=== PATIENT | male | born 1945 | race Caucasian/White ===

== ENCOUNTER 2020-05-04 11:15 | Inpatient (IN) | payer MEDICARE, OTHER ==
[~2020-05-04] VITALS: Ht 185.4 cm; Wt 107.6 kg
--- NOTE | 2020-05-04 11:48 | RAD ---
Examination: CHEST AP ONLY History: Reason: SOA / Spl. Instructions: / History: Comparison: None. Findings: AP portable upright frontal view of the chest was obtained. Limited pulmonary inflation noted. Elevation right hemidiaphragm is present. The cardiomediastinal silhouette is borderline. There is nonspecific mild diffuse thickening of the lung singh . There is no pneumothorax. No pleural effusion is appreciated. No acute bone abnormality. IMPRESSION: Mild interstitial thickening of the lung singh. This is of indeterminate chronicity. No focal consolidation. Electronically signed by: Mendez Agustin MD (05/04/2020 11:46 AM) [id number]
--- NOTE | 2020-05-04 11:56 | EKG ---
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
[2020-05-04 12:08] LABS: BASO % 0 % (0-3); EOS % 1 % (0-3); HEMATOCRIT 43.5 % (39.0-53.0); HEMOGLOBIN 14.4 g/dL (13.0-17.5); LYMPH # 1.2 x10^3/uL (1.0-4.8); LYMPH % 12 % (24-48); MEAN CORPUSCULAR HEMOGLOBIN 31 pg (25-35); MEAN CORPUSCULAR HGB CONC 33 g/dL (31-37); MEAN CORPUSCULAR VOLUME 93 fL (79-100); MONO % 9 % (0-9); NEUT # 8.3 x10^3uL (1.8-7.7); NEUT % 79 % (31-73); PLATELET COUNT 130 x10^3/uL (140-400); RED BLOOD COUNT 4.69 x10^6/uL (4.30-5.70); RED CELL DISTRIBUTION WIDTH 14.3 % (11.5-14.5); WHITE BLOOD COUNT 10.5 x10^3/uL (4.0-11.0)
[2020-05-04 12:17] LABS: CREATININE 1.2 mg/dL (0.7-1.3); GFR 59.5; POTASSIUM 4.1 mmol/L (3.5-5.1)
[2020-05-04 12:29] LABS: ALBUMIN 3.2 g/dL (3.4-5.0); ALBUMIN/GLOBULIN RATIO 0.7 (1.0-1.7); MAGNESIUM 1.8 mg/dL (1.8-2.4); TOTAL BILIRUBIN 0.8 mg/dL (0.2-1.0); TOTAL PROTEIN 7.6 g/dL (6.4-8.2)
[2020-05-04] MEDS ORDERED: IV NORMAL SALINE 1,000ML 1,000 ML IV ONE (13:15)
[2020-05-04] MEDS ORDERED: methylPREDNISolone SOD SUCC PF 125 MG/2 ML VIAL. IV ONE (13:15)
--- NOTE | 2020-05-04 13:53 | PHYS DOC ---
Past History Past Medical History: COPD, Diabetes, High Cholesterol, Hypertension Past Surgical History: Cholecystectomy, Other Additional Past Surgical Histo: MULTIPLE KIDNEY STONES; LEFT KNEE REPLACED Alcohol Use: None General Adult EDM: Chief Complaint: SHORTNESS OF BREATH HPI: HPI: Patient is a 74-year-old male who presented to ER today for evaluation of general weakness, diarrhea, cough, congestion, trouble breathing since Thursday. Patient did travel up here from [place] to [facility] for some exercise. He went to the urgent care today for this symptom, he was tested positive COVID-19 today, they sent him here for evaluation because his oxygen saturation level. Patient is not on oxygen at home, he is not a smoker. Patient has no history of heart problem. Patient denies any chest pain. Patient denies any fever today. Review of Systems: Review of Systems: Constitutional: Denies fever or chills Eyes: Denies change in visual acuity HENT: Denies nasal congestion or sore throat Respiratory: Positive for cough or shortness of breath Cardiovascular: Denies chest pain or edema GI: Denies abdominal pain, positive for nausea and diarrhea : Denies dysuria Musculoskeletal: Denies back pain or joint pain Integument: Denies rash Neurologic: Denies headache, focal weakness or sensory changes Endocrine: Denies polyuria or polydipsia Lymphatic: Denies swollen glands Psychiatric: Denies depression or anxiety Heart Score: Risk Factors: Risk Factors: DM, Current or recent (<one month) smoker, HTN, HLP, family history of CAD, obesity. Risk Scores: Score 0 - 3: 2.5% MACE over next 6 weeks - Discharge Home Score 4 - 6: 20.3% MACE over next 6 weeks - Admit for Clinical Observation Score 7 - 10: 72.7% MACE over next 6 weeks - Early Invasive Strategies Current Medications: Current Meds: Current Medications Medications (Trade) Dose Ordered Sig/Cordelia Start Time Stop Time Status Last Admin Dose Admin Ceftriaxone Sodium 1 gm/ Sodium Chloride 50 ml @ 100 mls/hr 1X ONCE 05/04/20 13:15 05/04/20 13:44 DC Methylprednisolone Sodium Succinate (SOLU-Medrol 125MG VIAL) 125 mg 1X ONCE 05/04/20 13:15 05/04/20 13:16 DC Sodium Chloride 1,000 ml @ 1,000 mls/hr 1X ONCE 05/04/20 13:15 05/04/20 14:14 Allergies: Allergies: Allergies Coded Allergies Type Severity Reaction Last Updated Verified No Known Drug Allergies 05/04/20 No Physical Exam: PE: Constitutional: Well developed, well nourished, no acute distress, non-toxic appearance. [] HENT: Normocephalic, atraumatic, bilateral external ears normal, oropharynx moist, no oral exudates, nose normal. [] Eyes: PERRLA, EOMI, conjunctiva normal, no discharge. [] Neck: Normal range of motion, no tenderness, supple, no stridor. [] Cardiovascular:Heart rate regular rhythm, no murmur [] Lungs & Thorax: Bilateral breath sounds with crackles at lung bases to auscultation [] Abdomen: Bowel sounds normal, soft, no tenderness, no masses, no pulsatile masses. [] Skin: Warm, dry, no erythema, no rash. [] Back: No tenderness, no CVA tenderness. [] Extremities: No tenderness, no cyanosis, no clubbing, ROM intact, no edema. [] Neurologic: Alert and oriented X 3, normal motor function, normal sensory function, no focal deficits noted. [] Psychologic: Affect normal, judgement normal, mood normal. [] Current Patient Data: Labs: Laboratory Tests Test 05/04/20 11:45 White Blood Count 10.5 x10^3/uL (4.0-11.0) Red Blood Count 4.69 x10^6/uL (4.30-5.70) Hemoglobin 14.4 g/dL (13.0-17.5) Hematocrit 43.5 % (39.0-53.0) Mean Corpuscular Volume 93 fL (79-100) Mean Corpuscular Hemoglobin 31 pg (25-35) Mean Corpuscular Hemoglobin Concent 33 g/dL (31-37) Red Cell Distribution Width 14.3 % (11.5-14.5) Platelet Count 130 x10^3/uL (140-400) L Neutrophils (%) (Auto) 79 % (31-73) H Lymphocytes (%) (Auto) 12 % (24-48) L Monocytes (%) (Auto) 9 % (0-9) Eosinophils (%) (Auto) 1 % (0-3) Basophils (%) (Auto) 0 % (0-3) Neutrophils # (Auto) 8.3 x10^3uL (1.8-7.7) H Lymphocytes # (Auto) 1.2 x10^3/uL (1.0-4.8) Monocytes # (Auto) 1.0 x10^3/uL (0.0-1.1) Eosinophils # (Auto) 0.0 x10^3/uL (0.0-0.7) Basophils # (Auto) 0.0 x10^3/uL (0.0-0.2) Sodium Level 128 mmol/L (136-145) L Potassium Level 4.1 mmol/L (3.5-5.1) Chloride Level 93 mmol/L (98-107) L Carbon Dioxide Level 25 mmol/L (21-32) Anion Gap 10 (6-14) Blood Urea Nitrogen 16 mg/dL (8-26) Creatinine 1.2 mg/dL (0.7-1.3) Estimated GFR (Cockcroft-Gault) 59.5 BUN/Creatinine Ratio 13 (6-20) Glucose Level 385 mg/dL (70-99) H Calcium Level 9.0 mg/dL (8.5-10.1) Magnesium Level 1.8 mg/dL (1.8-2.4) Total Bilirubin 0.8 mg/dL (0.2-1.0) Aspartate Amino Transferase (AST) 36 U/L (15-37) Alanine Aminotransferase (ALT) 44 U/L (16-63) Alkaline Phosphatase 101 U/L (46-116) Troponin I Quantitative < 0.017 ng/mL (0-0.055) NO-Als-J-Type Natriuretic Peptide 60 pg/mL (0-124) Total Protein 7.6 g/dL (6.4-8.2) Albumin 3.2 g/dL (3.4-5.0) L Albumin/Globulin Ratio 0.7 (1.0-1.7) L Vital Signs: Vital Signs Date Time Temp Pulse Resp B/P (MAP) Pulse Ox O2 Delivery O2 Flow Rate FiO2 05/04/20 11:31 98.1 75 19 138/89 (105) 87 Room Air EKG: EKG: EKG was done at 1150, sinus rhythm, heart rate of 75 bpm, no ST segment elevation. Radiology/Procedures: Radiology/Procedures: [][address] [id number] IMAGING REPORT Signed PATIENT: DILIP SCHMIDT ACCOUNT: [id number] : 1945 LOCATION: ER AGE: 74 SEX: M EXAM STATUS: REG ER ORD. PHYSICIAN: LEENA HURTADO DO REASON: SOA PROCEDURE: CHEST AP ONLY Examination: CHEST AP ONLY History: Reason: SOA / Spl. Instructions: / History: Comparison: None. Findings: AP portable upright frontal view of the chest was obtained. Limited pulmonary inflation noted. Elevation right hemidiaphragm is present. The cardiomediastinal silhouette is borderline. There is nonspecific mild diffuse thickening of the lung singh . There is no pneumothorax. No pleural effusion is appreciated. No acute bone abnormality. IMPRESSION: Mild interstitial thickening of the lung singh. This is of indeterminate chronicity. No focal consolidation. Electronically signed by: Mendez Covarrubias MD (05/04/2020 11:46 AM) [id number] DICTATED AND SIGNED BY: MENDEZ COVARRUBIAS MD DATE: 05/04/20 1146 CC: PCPMARTÍNEZ; LEENA HURTDAO DO ~ Course & Med Decision Making: Course & Med Decision Making Pertinent Labs and Imaging studies reviewed. (See chart for details) Patient is a 74-year-old male who was diagnosed with COVID-19 infection today, he will need to be admitted to hospital due to her oxygen saturation low. Discussed with Dr. JAIN , who agreed to admit the patient . Cricket Disclaimer: Dragtamie Disclaimer: This electronic medical record was generated, in whole or in part, using a voice recognition dictation system. Departure Departure: Impression: Primary Impression: Pneumonia due to COVID-19 virus Additional Impression: Hypoxia Disposition: ADMITTED INPATIENT Admitting Physician: Gopal Jain Condition: STABLE Referrals: PCPMARTÍNEZ (PCP) LEENA HURTADO DO May 04, 2020 13:53
[2020-05-04] MEDS ORDERED: IV NORMAL SALINE 50ML 50 ML ONE (13:54)
[2020-05-04] MEDS ORDERED: cefTRIAXone SODIUM 1 GM VIAL ONE (13:55)
[2020-05-04] MEDS ORDERED: ONDANSETRON PF 4 MG/2 ML VIAL. IVP PRN (14:00)
[2020-05-04] MEDS: IV NORMAL SALINE 1,000ML 1,000 ML IV SCH (15:50)
[2020-05-04 16:40] VITALS: BP 125/58
--- NOTE | 2020-05-04 19:18 | HP ---
ADMIT DATE: 05/04/2020 ATTENDING PHYSICIAN: Dr. Jain. CHIEF COMPLAINT: Weakness and cough. HISTORY OF PRESENT ILLNESS: The patient is an otherwise healthy 74-year-old gentleman. He is still working. 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 He originally comes from [facility]. He has been living in a hotel for the last week. He had trouble breathing since the past Thursday for the last 5 days, cough, congestion, diarrhea and generalized weakness. He had desaturated and required 3-4 liters of oxygen to maintain 90% saturation. He had a swab today, which showed it was positive for COVID-19 today. He was sent here because of the decreased oxygen level. Chest x-ray was a poor film, poor inspiratory effort. A followup PA and lateral has been ordered. He is not a smoker. He is admitted then with COVID-19 pneumonia as well as associated symptoms. He does have sleep apnea. He wears the CPAP at night. He denied any chest pain. No recent fevers. He is otherwise pretty alert. PAST MEDICAL HISTORY: Significant for multiple kidney stones. He has had left knee replacement, cholecystectomy, hypertension, hyperlipidemia, diabetes and COPD. ALLERGIES: He has no known drug allergies. CURRENT MEDICINES: Reviewed. He was scheduled to take ondansetron. He was on saline solution. He has CPAP at night. He was also given some methylprednisolone in the ED. SOCIAL HISTORY: He is a nonsmoker, nondrinker. FAMILY HISTORY: His mom at age 80 of pulmonary complications of collapsed lung. Father of a heart attack at age 85. He is semi-retired. 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 REVIEW OF SYSTEMS: Significant for the 5 days of generalized weakness, dry nonproductive cough. No fevers per se. Some diarrhea. No vomiting. The rest of the detailed review of systems ____ to be negative. PHYSICAL EXAMINATION: GENERAL: When I saw him, this is a pleasant, healthy gentleman. INITIAL VITAL SIGNS: Showed a blood pressure of 119/64, pulse is 80 and regular, temperature 98.1 degrees Fahrenheit, oxygen saturation 94% on 3 liters of nasal cannula. HEENT: Head is without trauma. Pupils are reactive. Sclerae are nonicteric. Oropharynx is clear. NECK: Supple. No bruits identified. LUNGS: Coarse rhonchi at the bases, minimal wheezing identified. Fairly good air movement. CARDIOVASCULAR: Showed regular heart tones. No gallops. ABDOMEN: Soft, nontender. No organomegaly. Bowel sounds are normoactive. EXTREMITIES: Show no cyanosis or edema. NEUROLOGIC: Focally intact. SKIN: Warm and dry. Chest x-ray as noted. PERTINENT LABORATORY STUDIES: His hemoglobin was 14.4 g/dL with a white count of 10,500. Sodium was 128 mEq, creatinine 1.2 ____. Nonfasting blood sugar 385. Troponin is 0.17. ASSESSMENT: 1. A 74-year-old gentleman with COVID-19 coronavirus, respiratory infection. 2. Cough and congestion. 3. Type 2 diabetes. 4. Degenerative arthritis. 5. Hypertension. 6. Hyperlipidemia. PLAN: 1. Admit to the intensive care. 2. Supplemental oxygen. 3. I have ordered low dose of Decadron as recommended. 4. DVT prophylaxis with Lovenox. 5. Continue some home meds. 6. Followup chest x-ray in the morning. 7. P.r.n. Tussionex. SP JAIN MD DR: ABIMAEL/gadiel JOB#: [id number] / [id number]
[2020-05-04] MEDS: ENOXAPARIN 40 MG/0.4 ML SYRINGE. SQ SCH (20:04)
[2020-05-04] MEDS: DEXAMETHASONE SOD PHOS 10 MG/ML VIAL. IV SCH (20:04)
[2020-05-04 20:30] VITALS: BP 137/65
[2020-05-04 23:20] VITALS: BP 121/66
[2020-05-05 03:00] VITALS: BP 112/57
[2020-05-05] MEDS: IV NORMAL SALINE 1,000ML 1,000 ML IV SCH (06:30)
[2020-05-05 06:43] VITALS: BP 122/56
[2020-05-05] MEDS: metFORMIN XR 500 MG TAB.ER.24H PO SCH ×2 (08:29→18:04)
[2020-05-05] MEDS: DEXAMETHASONE SOD PHOS 10 MG/ML VIAL. IV SCH (08:29)
--- NOTE | 2020-05-05 11:29 | PN ---
DATE: 05/05/2020 ATTENDING PHYSICIAN: Dr. Jain. SUBJECTIVE: The patient is feeling well. He is not dyspneic. We are checking room air sat. He slept better. Cough is improved. OBJECTIVE FINDINGS: VITAL SIGNS: Blood pressure today is 122/56, pulse 65 and regular, temperature 97.8 degrees Fahrenheit and oxygen saturation are close to normal on room air. HEENT: Head is without trauma. Pupils are reactive. Sclerae nonicteric. Oropharynx clear. NECK: Supple. LUNGS: Good breath sounds. Very minimal rhonchi at the bases. CARDIOVASCULAR: Showed regular heart tones. No gallops. Peripheral pulses are palpable and full. ABDOMEN: Obese, protuberant. No organomegaly. Bowel sounds are hypoactive. EXTREMITIES: Showed no cyanosis or edema. NEUROLOGIC: Focally intact. Speech is fluent. SKIN: Warm and dry. 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 COVID-19 positive infection. 2. Questionable pneumonia. 3. Hypoxemia, improved. 4. Essential hypertension. PLAN: 1. We are weaning down his oxygen. We will check room air sat. 2. Continue Decadron daily. 3. Continue Lovenox daily. 4. I have added zinc and Pepcid, which seems to help with viral replication. 5. I will order a CT of the chest for tomorrow. He is doing well clinically. SP JAIN MD DR: ABIMAEL/gadiel JOB#: [id number] / [id number]
[2020-05-05 12:34] VITALS: BP 129/59
[2020-05-05] MEDS: ZINC SULFATE 220 MG CAPSULE. PO SCH (12:49)
[2020-05-05] MEDS: HYDROcodone/CHLORPHEN POLIS 5 ML SUS.ER.12H PO PRN (12:50)
[2020-05-05] MEDS: FAMOTIDINE 20 MG TABLET PO SCH ×2 (12:50→20:16)
[2020-05-05 16:14] VITALS: BP 123/69
[2020-05-05] MEDS ORDERED: INSULIN REGULAR 100 UNIT/ML 3ML VIAL. SQ ONE ×2 (17:45→22:15)
[2020-05-05 20:15] VITALS: BP 113/56
[2020-05-05] MEDS: ENOXAPARIN 40 MG/0.4 ML SYRINGE. SQ SCH (20:16)
[2020-05-05] MEDS ORDERED: INSULIN LISPRO 300 UNITS/3 ML VIAL. SQ ONE (22:00)
[2020-05-05 23:01] VITALS: BP 116/54
[2020-05-06 03:05] VITALS: BP 102/47
[2020-05-06] MEDS ORDERED: IOHEXOL 300 MG/ML 75 ML VIAL. IV ONE (06:45)
[2020-05-06] MEDS ORDERED: CONTRAST GIVEN. MC PRN (06:45)
[2020-05-06 07:00] VITALS: BP 114/47
[2020-05-06] MEDS ORDERED: INSULIN REGULAR 100 UNIT/ML 3ML VIAL. SQ ONE (07:45)
[2020-05-06] MEDS: ZINC SULFATE 220 MG CAPSULE. PO SCH (08:22)
[2020-05-06] MEDS: FAMOTIDINE 20 MG TABLET PO SCH ×2 (08:22→20:40)
[2020-05-06] MEDS: metFORMIN XR 500 MG TAB.ER.24H PO SCH (08:22)
--- NOTE | 2020-05-06 10:10 | RAD ---
EXAM: CT CHEST WITH CONTRAST HISTORY: Covid 19, pneumonia COMPARISON: Chest radiograph 05/04/2020 TECHNIQUE: Helical CT of the chest performed with intravenous contrast. Coronal and sagittal reformats were obtained. One or more of the following individualized dose reduction techniques were utilized for this examination: 1. Automated exposure control 2. Adjustment of the mA and/or kV according to patient size 3. Use of iterative reconstruction technique. FINDINGS: Thyroid gland and thoracic inlet: Thyroid gland is normal. No thoracic inlet lymphadenopathy. Heart and great vessels: Heart is at the upper limit of normal in size. There are is no pleural effusion. Mild coronary artery calcifications. The thoracic aorta is normal in caliber. Mild calcifications in the thoracic aorta. Mediastinum and rigoberto: There is a low right paratracheal lymph node measuring 1.4 cm short axis, left hilar lymph node measuring 1.6 cm short axis, and additional smaller mediastinal and hilar lymph nodes, likely reactive. Lungs and pleura: There are moderate peripheral and basilar predominant groundglass opacities and reticular changes. The airways are clear. There is no pleural effusion. Chest wall and axillae: No axillary lymphadenopathy. Upper abdomen: Bilateral nephrolithiasis. There is a subcentimeter hypodensity in the liver, too small to characterize but likely a cyst. Trace fluid in the upper abdomen. Bones: No acute osseous abnormality. IMPRESSION: 1. Moderate peripheral basilar predominant groundglass opacities consistent with atypical infection. 2. Bilateral nephrolithiasis. Electronically signed by: Paula Joseph MD (05/06/2020 10:07 AM) [id number]
[2020-05-06 11:00] VITALS: BP 133/59
--- NOTE | 2020-05-06 12:03 | PN ---
DATE: 05/06/2020 ATTENDING PHYSICIAN: Dr. Jain. SUBJECTIVE: The patient is doing well. He is on supplemental oxygen. He is not dyspneic. He is eating well. OBJECTIVE FINDINGS: VITAL SIGNS: His blood pressure today is 102/47, pulse 63 and regular. He is afebrile. Oxygen saturation maintaining adequate sats 90% with 4 liters down from 5 liters nasal cannula. HEENT: Head is without trauma. Pupils are reactive. Sclerae nonicteric. Oropharynx clear. NECK: Supple. LUNGS: Minimal rhonchi in the bases. CARDIOVASCULAR: Showed regular heart tones. No gallops. Peripheral pulses are palpable and full. ABDOMEN: Obese, protuberant. No organomegaly. Bowel sounds are hypoactive. EXTREMITIES: Showed no cyanosis. LABORATORY DATA: Blood sugars were high related to the steroids. This will be treated accordingly. IMAGING STUDIES: CT of the chest done earlier today showed the presence of moderate perihilar and peripheral basilar ground glass opacity consistent with atypical pneumonia. He also has bilateral nephrolithiasis. ASSESSMENT: 1. A 74-year-old gentleman with COVID-19 pneumonia. 2. Hypoxemia. 3. Type 2 diabetes. 4. Essential hypertension. 5. Sugars aggravated by Decadron use. PLAN: 1. We will restart the Decadron. 2. We will get him on insulin to manage his blood sugar. 3. Continue Lovenox prophylaxis along with zinc and Pepcid. 4. We will try to wean down his oxygen requirements. 5. His case and symptoms are mild at this time. I do not think we would consider Remdesivir unless he gets worse clinically. SP JAIN MD DR: ABIMAEL/gadiel JOB#: [id number] / [id number]
[2020-05-06] MEDS ORDERED: DEXTROSE 50% 25 GM / 50ML DISP.SYRIN. IV PRN (12:15)
[2020-05-06] MEDS: INSULIN GLARGINE SYRINGE. SQ SCH ×2 (13:01→21:08)
[2020-05-06] MEDS: INSULIN LISPRO 300 UNITS/3 ML VIAL. SQ SCH ×2 (13:02→17:30)
[2020-05-06 15:00] VITALS: BP 138/67
[2020-05-06] MEDS: HYDROcodone/CHLORPHEN POLIS 5 ML SUS.ER.12H PO PRN (16:31)
[2020-05-06] MEDS: IPRATROPIUM/ALBUTEROL 20/100mcg/INH INHALER. INH PRN (16:36)
[2020-05-06] MEDS ORDERED: FUROSEMIDE 40 MG/4 ML VIAL IVP ONE (17:00)
[2020-05-06] MEDS: ENOXAPARIN 40 MG/0.4 ML SYRINGE. SQ SCH (20:40)
[2020-05-06 20:45] VITALS: BP 129/64
[2020-05-06 23:13] VITALS: BP 129/61
[2020-05-07] MEDS: FAMOTIDINE 20 MG TABLET PO SCH ×2 (08:44→21:03)
[2020-05-07] MEDS: ZINC SULFATE 220 MG CAPSULE. PO SCH (08:44)
[2020-05-07] MEDS: DEXAMETHASONE SOD PHOS 10 MG/ML VIAL. IV SCH (08:44)
[2020-05-07] MEDS: INSULIN LISPRO 300 UNITS/3 ML VIAL. SQ SCH ×3 (08:45→17:00)
[2020-05-07 10:05] VITALS: BP 135/67
[2020-05-07] MEDS: INSULIN GLARGINE SYRINGE. SQ SCH ×2 (10:45→21:04)
[2020-05-07 11:09] VITALS: BP 135/67
[2020-05-07] MEDS ORDERED: INSULIN LISPRO 300 UNITS/3 ML VIAL. SQ ONE ×2 (12:15→17:45)
[2020-05-07] MEDS ORDERED: INSULIN REGULAR 100 UNIT/ML 3ML VIAL. IV ONE (12:30)
[2020-05-07 14:02] VITALS: BP 129/61
[2020-05-07] MEDS ORDERED: INSULIN REGULAR 100 UNIT/ML 3ML VIAL. SQ ONE (17:00)
--- NOTE | 2020-05-07 18:37 | PN ---
DATE: 05/07/2020 ATTENDING PHYSICIAN: Dr. Jain. SUBJECTIVE: The patient is doing well. He is inquiring about going home. I explained to him that he is still not out of the herring yet. He is still requiring supplemental oxygen. He is getting some cabin fever. OBJECTIVE FINDINGS: GENERAL: Cough is less prominent. Sugars are down to 290. He has not been compliant with his metformin. VITAL SIGNS: Blood pressure today is 129/61; pulse 62 and regular; afebrile, 98 degrees Fahrenheit; oxygen saturation 93% on 5 liters by nasal cannula. HEENT: Head is without trauma. Pupils are reactive. Sclerae nonicteric. Oropharynx clear. NECK: Supple. No bruits. HEENT: Head is without trauma. Pupils are reactive. Sclerae nonicteric. Oropharynx clear. LUNGS: Minimal rhonchi at the bases. He has good air movement. CARDIOVASCULAR: Showed regular heart tones. No gallops. ABDOMEN: Soft, no guarding. EXTREMITIES: Without cyanosis or edema. NEUROLOGIC: Focally intact. Speech is fluent. No focal deficit. SKIN: Warm and dry. ASSESSMENT: 1. A 74-year-old gentleman with COVID-[address] scan with bilateral and bibasilar infiltrates. 2. Hypoxemia requiring supplemental oxygen. 3. Type 2 diabetes with poor control in the past. 4. Essential hypertension. 5. Sugars have been aggravated by Decadron use. PLAN: 1. We will adjust his insulin regimen accordingly as his sugars have been high with the Decadron. 2. Continue Lovenox prophylaxis. 3. Continue zinc and Pepcid. 4. We are trying to wean down his oxygen requirements. 5. I think his symptoms are stable. He is not anywhere close to requiring remdesivir at this time. I think that he will turn the corner, will see how he does in the next 48 hours. SP JAIN MD DR: ABIMAEL/gadiel JOB#: [id number] / [id number]
[2020-05-07 19:43] VITALS: BP 159/71
[2020-05-07] MEDS ORDERED: INSULIN LISPRO 300 UNITS/3 ML VIAL. SQ SCH (21:00)
[2020-05-07] MEDS: ENOXAPARIN 40 MG/0.4 ML SYRINGE. SQ SCH (21:03)
[2020-05-07] MEDS: IPRATROPIUM/ALBUTEROL 20/100mcg/INH INHALER. INH PRN (21:03)
[2020-05-07 23:00] VITALS: BP 133/68
[2020-05-08 07:33] VITALS: BP 135/62
[2020-05-08] MEDS: INSULIN LISPRO 300 UNITS/3 ML VIAL. SQ SCH ×4 (08:00→21:05)
[2020-05-08] MEDS: metFORMIN XR 500 MG TAB.ER.24H PO SCH ×2 (08:07→16:38)
[2020-05-08] MEDS: DEXAMETHASONE SOD PHOS 10 MG/ML VIAL. IV SCH (08:07)
[2020-05-08] MEDS: FAMOTIDINE 20 MG TABLET PO SCH ×2 (08:08→21:03)
[2020-05-08] MEDS: ZINC SULFATE 220 MG CAPSULE. PO SCH (08:08)
[2020-05-08 10:58] VITALS: BP 136/64
--- NOTE | 2020-05-08 12:17 | PN ---
DATE: 05/08/2020 ATTENDING PHYSICIAN: Dr. Jain. SUBJECTIVE: The patient is doing well. He has no new complaints. He remains on supplemental oxygen. He denies any pain or dyspnea. OBJECTIVE FINDINGS: VITAL SIGNS: Blood pressure today is 136/64 mmHg, pulse is 70 and regular, temperature 97.3 degrees Fahrenheit, oxygen saturation 92% on 6 liters by nasal cannula. HEENT: Head is without trauma. Pupils are reactive. Sclerae are nonicteric. Oropharynx clear. NECK: Supple. No stridor. LUNGS: Bibasilar rhonchi persist. CARDIOVASCULAR: Showed regular heart tones. No gallops. Peripheral pulses are palpable and full. ABDOMEN: Obese, protuberant. No organomegaly. Bowel sounds were hypoactive. EXTREMITIES: Showed no cyanosis or edema. NEUROLOGIC: Focally intact. SKIN: Warm and dry. Nonfasting blood sugar came down to 148 this morning. ASSESSMENT: 1. A 74-year-old gentleman from [place]. He has COVID-19 coronavirus pneumonia. 2. Hypoxemia, requiring supplemental oxygen. 3. Type 2 diabetes with poor control. Sugars are better in the hospital. 4. History of sleep apnea. 5. Essential hypertension. PLAN: 1. Continue weaning down his supplemental oxygen. 2. He has not been anywhere close to requiring remdesivir. 3. Continue Lovenox for prophylaxis. 4. Continue Decadron, zinc and Pepcid. 5. Glucose control. 6. Once he stabilizes and is at baseline, he can be discharged back to his hotel suite to continue his quarantine. Eventually, he plans on returning to [place] 05/17/2020. SP JAIN MD DR: ABIMAEL/gadiel JOB#: [id number] / [id number]
[2020-05-08 15:09] VITALS: BP 135/64
[2020-05-08 19:41] VITALS: BP 173/78
[2020-05-08] MEDS ORDERED: INSULIN LISPRO 300 UNITS/3 ML VIAL. SQ SCH (21:00)
[2020-05-08] MEDS: ENOXAPARIN 40 MG/0.4 ML SYRINGE. SQ SCH (21:02)
[2020-05-08] MEDS: HYDROcodone/CHLORPHEN POLIS 5 ML SUS.ER.12H PO PRN (21:03)
[2020-05-08] MEDS: INSULIN GLARGINE SYRINGE. SQ SCH (21:04)
[2020-05-09 02:03] VITALS: BP 161/76
[2020-05-09] MEDS ORDERED: METF10007 PO (03:11)
[2020-05-09] MEDS ORDERED: BUPR300T92 PO (03:11)
[2020-05-09] MEDS ORDERED: SIMV40TA18 PO (03:11)
[2020-05-09] MEDS ORDERED: TRIA1CAP3 PO (03:11)
[2020-05-09] MEDS ORDERED: LITH450T16 PO (03:11)
[2020-05-09] MEDS ORDERED: AMLO-187 PO (03:11)
[2020-05-09] MEDS ORDERED: ESCITALOPRAM OX20 MG PO (03:11)
[2020-05-09] MEDS ORDERED: GABA600T7 PO (03:11)
[2020-05-09 05:47] VITALS: BP 154/69
[2020-05-09] MEDS: ZINC SULFATE 220 MG CAPSULE. PO SCH (10:09)
[2020-05-09] MEDS: FAMOTIDINE 20 MG TABLET PO SCH ×2 (10:09→21:32)
[2020-05-09] MEDS: metFORMIN XR 500 MG TAB.ER.24H PO SCH ×2 (10:09→17:23)
[2020-05-09] MEDS: DEXAMETHASONE SOD PHOS 10 MG/ML VIAL. IV SCH (10:09)
[2020-05-09] MEDS: INSULIN LISPRO 300 UNITS/3 ML VIAL. SQ SCH ×2 (12:15→17:54)
[2020-05-09 15:00] VITALS: BP 130/66
[2020-05-09 18:17] VITALS: BP 138/68
--- NOTE | 2020-05-09 18:37 | RAD ---
EXAM: CHEST PA LATERAL 05/09/2020 12:00 AM CLINICAL INDICATION:Worsening shortness of breath. Covid positive COMPARISON:Chest radiograph and CT chest 05/06/2020 TECHNIQUE:PA view of the chest FINDINGS:The cardiomediastinal silhouette is unchanged. Lungs are hypoexpanded. Bilateral peripheral basilar predominant opacities are slightly increased, particularly in the left lung base. No pleural effusion or pneumothorax. No acute osseous abnormality. IMPRESSION:Slightly worsened bilateral pulmonary opacities. Electronically signed by: Paula Joseph MD (05/09/2020 6:34 PM) [id number]
[2020-05-09] MEDS ORDERED: SIMVASTATIN 40 MG TABLET. PO SCH (21:00)
[2020-05-09] MEDS: GABAPENTIN 300 MG CAPSULE. PO SCH (21:32)
[2020-05-09] MEDS: LITHIUM CARBONATE ER 450 MG TABLET.ER PO SCH (21:32)
[2020-05-09] MEDS: ENOXAPARIN 40 MG/0.4 ML SYRINGE. SQ SCH (21:34)
[2020-05-09] MEDS: INSULIN GLARGINE SYRINGE. SQ SCH (21:34)
[2020-05-09 22:31] VITALS: BP 166/75
--- NOTE | 2020-05-10 01:37 | PN ---
DATE: 05/09/2020 SUBJECTIVE: The patient is a 74-year-old male patient who was admitted originally on 05/04 basically with shortness of breath for 5 days prior to admission, cough, congestion, diarrhea and generalized weakness. He had desaturation and required 3-4 liters of oxygen to maintain his oxygen saturation around 90%. He had swabs which showed that he was positive for COVID-19. He was admitted through the Emergency Room for decreased oxygen level. His chest x-ray was a poor film, poor inspiratory effort. A followup PA and lateral view has been ordered and he was admitted for COVID-19 pneumonia as well as associated symptoms. He does have sleep apnea. He wears CPAP at nighttime. He denied any chest pain. When I saw him today, he was sitting in the chair, in no apparent respiratory distress. On questioning, he continued to have cough with mostly grayish colored sputum. He has also recurrent bouts of cough, especially if he takes a deep breath, but denied any chest pain. Did complain of shortness of breath, but denied any orthopnea or paroxysmal nocturnal dyspnea. OBJECTIVE: GENERAL: On examining him, he looked well and was clearly in no apparent respiratory distress. No pallor, jaundice, cyanosis or thyromegaly. No jugular venous distention. No limb edema. VITAL SIGNS: His heart rate was 51, blood pressure was 154/69, temperature was 97.8, respiratory rate was 21 and oxygen saturation was 93% on 6 liters of oxygen. HEAD, EYES, EARS, NOSE AND THROAT: Showed normocephalic, atraumatic. NECK: Supple. HEART: Normal first and second heart sounds. No gallop, rub or murmur. CHEST: Showed central trachea, equal bilateral chest expansion, air entry, vesicular sounds with bilateral basal crepitation. I could not appreciate any rhonchi. ABDOMEN: Distended, soft, nontender. NEUROLOGIC: He was awake, alert and all his cranial nerves intact. He moves all extremities without difficulty. LABORATORY DATA: His most recent lab work showed his serum sodium was 128, potassium 4.1, chloride 93, bicarbonate 25, anion gap of 10, BUN 16, creatinine 1.2, estimated GFR was 59 mL per minute, his glucose was 385, calcium was 9, magnesium was 1.8. Total bilirubin, AST, ALT, alkaline phosphatase were normal. Total protein was 7.6, albumin was 3.2. His white cell count was 10,000, hemoglobin 14.4, hematocrit 44, MCV 93, and platelet count of 130,000. His coronavirus-2 PCR was not detected. PLAN: My plan is to repeat all his lab work, chest x-ray and swab him again and if he remains negative, we can hopefully discharge him home. ANSHU YOUNG MD DR: ELIER/gadiel JOB#: [id number] / [id number]
[2020-05-10 05:06] VITALS: BP 156/76
[2020-05-10 07:16] LABS: ALBUMIN 2.6 g/dL (3.4-5.0); ALBUMIN/GLOBULIN RATIO 0.7 (1.0-1.7); C REACTIVE PROTEIN 16.2 mg/L (0-3.3); CALCIUM 8.8 mg/dL (8.5-10.1); GFR 73.5; POTASSIUM 3.2 mmol/L (3.5-5.1); TOTAL BILIRUBIN 0.4 mg/dL (0.2-1.0); TOTAL PROTEIN 6.5 g/dL (6.4-8.2)
[2020-05-10] MEDS: INSULIN LISPRO 300 UNITS/3 ML VIAL. SQ SCH ×4 (08:00→18:37)
[2020-05-10] MEDS: GABAPENTIN 300 MG CAPSULE. PO SCH ×3 (08:16→22:26)
[2020-05-10] MEDS: FAMOTIDINE 20 MG TABLET PO SCH ×2 (08:16→22:26)
[2020-05-10] MEDS: CITALOPRAM 20 MG TABLET. PO SCH (08:16)
[2020-05-10] MEDS: TRIAMTERENE/HCTZ 37.5/25MG TABLET. PO SCH (08:16)
[2020-05-10] MEDS: ZINC SULFATE 220 MG CAPSULE. PO SCH (08:16)
[2020-05-10] MEDS: amLODIPine BESYLATE 10 MG TABLET PO SCH (08:16)
[2020-05-10] MEDS: buPROPion XL 300 MG TAB.ER.24H. PO SCH (08:17)
[2020-05-10] MEDS: DEXAMETHASONE 4 MG TABLET PO SCH (08:17)
[2020-05-10] MEDS: metFORMIN 500 MG TABLET PO SCH ×2 (08:17→16:23)
[2020-05-10 08:20] LABS: HEMATOCRIT 41.5 % (39.0-53.0); HEMOGLOBIN 13.6 g/dL (13.0-17.5); RED BLOOD COUNT 4.53 x10^6/uL (4.30-5.70); RED CELL DISTRIBUTION WIDTH 13.9 % (11.5-14.5); WHITE BLOOD COUNT 11.1 x10^3/uL (4.0-11.0)
[2020-05-10 11:30] VITALS: BP 138/56
[2020-05-10] MEDS ORDERED: VANCOMYCIN PER PHARMACY MC PRN (13:45)
[2020-05-10] MEDS ORDERED: REMDESIVIR LOAD in IV NORMAL SALINE 250ML TV IV ONE (14:00)
[2020-05-10 15:00] VITALS: BP 145/63
[2020-05-10] MEDS ORDERED: VANCOMYCIN 2 GM in IV NORMAL SALINE 500ML 500 ML IV ONE (16:00)
[2020-05-10] MEDS ORDERED: DEXTROSE 50% 25 GM / 50ML DISP.SYRIN. IV PRN (17:15)
[2020-05-10] MEDS: PIPERACILLIN/TAZOBACTAM 3.375 GM in IV NORMAL SALINE 50ML 50 ML IV SCH (18:40)
[2020-05-10 19:56] VITALS: BP 150/60
[2020-05-10] MEDS: ENOXAPARIN 40 MG/0.4 ML SYRINGE. SQ SCH (22:25)
[2020-05-10] MEDS: LITHIUM CARBONATE ER 450 MG TABLET.ER PO SCH (22:26)
[2020-05-10] MEDS: INSULIN GLARGINE SYRINGE. SQ SCH (22:26)
[2020-05-10] MEDS: ATORVASTATIN CALCIUM 20 MG TABLET PO SCH (22:27)
--- NOTE | 2020-05-10 22:39 | PN ---
DATE: 05/10/2020 SUBJECTIVE: The patient is resting, slightly propped up in bed, continued to be somewhat tachypneic with recurrent bouts of cough. He continued to require 5-6 liters of oxygen. PHYSICAL EXAMINATION: GENERAL: When I examined him this morning, he was resting, propped up in bed. There was no pallor, jaundice, cyanosis or thyromegaly. No jugular venous distention. No limb edema. VITAL SIGNS: His heart rate was 75, blood pressure was 138/56, temperature was 97.4, respiratory rate was 20, and oxygen saturation was 93% on 5 liters of oxygen by nasal cannula. HEENT: Showed normocephalic, atraumatic. NECK: Supple. HEART: Showed normal first and second heart sounds. No gallop or murmur. CHEST: Showed central trachea, equal bilateral expansion and air entry, vesicular sounds with bilateral crepitation posteriorly, more so on the left than the right. I could not appreciate any rhonchi. ABDOMEN: Distended, soft, nontender. NEUROLOGIC: He was awake, alert, responding appropriately. All cranial nerves are intact. He moves extremities without difficulty. He ambulates without assistance or assistive devices. His intake over the last 24 hours was 2414, no output was recorded. LABORATORY DATA: His lab work this morning showed a white cell count of 11,100, hemoglobin 13.6, hematocrit 41.5, MCV 92, and platelet count of 164,000. His chemistry showed a serum sodium 141, potassium 3.2, chloride 106, bicarbonate 22, anion gap of 13, BUN 17, creatinine 1, estimated GFR was 73 mL per minute. His glucose was 128, calcium was 8.8. Total bilirubin, AST, ALT, alkaline phosphatase were normal. His C-reactive protein was 16.2. Total protein was 6.5, albumin was 2.6. His D-dimer was 2.6. His coronavirus by PCR was detected. His chest x-ray showed the cardiomediastinal silhouette is unchanged. Lungs are hypo-expanded. His bilateral peripheral basilar predominant opacities are slightly increased, particularly in the left lung base. No pleural effusion or pneumothorax. No acute osseous abnormality. ASSESSMENT: COVID-19, pneumonia, acute hypoxic respiratory failure. Other medical problems include type 2 diabetes mellitus, much better controlled; morbid obesity, obstructive sleep apnea, hypertension. PLAN: My plan is to start him on convalescent plasma as well as remdesivir as per protocol. I start him also on vancomycin and Zosyn. Continue with steroids. Continue with DVT prophylaxis. Continue with Lovenox. We will monitor him closely and I will continue to swab him for COVID-19. ANSHU YOUNG MD DR: ELIER/gadiel JOB#: [id number] / [id number]
[2020-05-10 22:55] VITALS: BP 152/74
[2020-05-10 23:33] VITALS: BP 149/78
[2020-05-11] VITALS (7 sets, daily range): BP systolic 120–164; BP diastolic 59–80
[2020-05-11] MEDS: PIPERACILLIN/TAZOBACTAM 3.375 GM in IV NORMAL SALINE 50ML 50 ML IV SCH ×4 (00:37→19:09)
[2020-05-11] MEDS: VANCOMYCIN 1.5 GM in IV NORMAL SALINE 500ML 500 ML IV SCH ×2 (04:11→16:32)
[2020-05-11 06:57] LABS: ALBUMIN 2.6 g/dL (3.4-5.0); DIRECT BILIRUBIN 0.2 mg/dL (0.0-0.2); TOTAL BILIRUBIN 0.5 mg/dL (0.2-1.0); TOTAL PROTEIN 6.5 g/dL (6.4-8.2)
[2020-05-11] MEDS: INSULIN LISPRO 300 UNITS/3 ML VIAL. SQ SCH ×6 (08:00→16:36)
[2020-05-11] MEDS ORDERED: INSULIN LISPRO 300 UNITS/3 ML VIAL. SQ SCH ×2 (08:00)
[2020-05-11] MEDS: DEXAMETHASONE 4 MG TABLET PO SCH (08:51)
[2020-05-11] MEDS: metFORMIN 500 MG TABLET PO SCH ×2 (08:51→16:32)
[2020-05-11] MEDS: FAMOTIDINE 20 MG TABLET PO SCH ×2 (08:51→20:23)
[2020-05-11] MEDS: CITALOPRAM 20 MG TABLET. PO SCH (08:51)
[2020-05-11] MEDS: ZINC SULFATE 220 MG CAPSULE. PO SCH (08:51)
[2020-05-11] MEDS: GABAPENTIN 300 MG CAPSULE. PO SCH ×3 (08:51→20:23)
[2020-05-11] MEDS: amLODIPine BESYLATE 10 MG TABLET PO SCH (08:52)
[2020-05-11] MEDS: TRIAMTERENE/HCTZ 37.5/25MG TABLET. PO SCH (08:52)
[2020-05-11] MEDS: buPROPion XL 300 MG TAB.ER.24H. PO SCH (08:54)
[2020-05-11] MEDS ORDERED: REMDESIVIR 100mg in NORMAL SALINE 250ML X 9 DAYS IV SCH (14:00)
[2020-05-11] MEDS: REMDESIVIR 100mg in NORMAL SALINE 250ML X 4 DAYS IV SCH (14:26)
[2020-05-11] MEDS ORDERED: POTASSIUM CHLORIDE 20 MEQ TABLET.ER. PO ONE (15:00)
--- NOTE | 2020-05-11 19:06 | PN ---
DATE: 05/11/2020 SUBJECTIVE: The patient is sitting slightly propped up in bed, continues to have recurrent bouts of cough, continued to have shortness of breath, although generally feeling slightly better. His oxygen requirement is slightly down now to 4 liters, maintaining his oxygen saturation at 95%. OBJECTIVE: GENERAL: When I examined him, he looked well and was clearly in no apparent respiratory distress. There was no pallor, jaundice, cyanosis or thyromegaly. No jugular venous distention. No lower limb edema. VITAL SIGNS: His heart rate was 66, blood pressure was 138/66, temperature 96.7, respiratory rate was 20 and oxygen saturation was 95% on 4 liters of oxygen. HEAD, EYES, EARS, NOSE AND THROAT: Showed normocephalic, atraumatic. NECK: Supple. HEART: Normal first and second heart sounds. No gallop, rub or murmur. CHEST: Shows central trachea, bilaterally equally reduced expansion, reduced air entry, vesicular sounds with bilateral basal crepitation on both sides, worse on the left side. ABDOMEN: Distended, soft, nontender. NEUROLOGIC: He was awake, alert, was grossly intact. His intake over the last 24 hours was 1015, output was recorded. LABORATORY DATA: His most recent coronavirus-2 PCR was detected on 05/09/2020. His CBC as of yesterday showed a white cell count of 11,100, hemoglobin 13.6, hematocrit 41, MCV 92, and platelet count of 164,000. His chemistry showed a serum sodium 141, potassium 3.2, chloride 106, bicarbonate 22, anion gap of 13, BUN 17, creatinine 1, estimated GFR was 73 mL per minute, his glucose 128, calcium was 8.8. Total bilirubin, AST, ALT, alkaline phosphatase were normal. C-reactive protein was 16.2. ASSESSMENT: 1. COVID-19 pneumonia. 2. Acute hypoxic respiratory failure, slightly better. His oxygen requirement is down to 4 liters. 3. Type 2 diabetes mellitus, seems to be slightly better. 4. Morbid obesity, obstructive sleep apnea. 5. Hypertension. PLAN: To continue with current medication. We will start him on potassium supplement and repeat his potassium tomorrow. ANSHU YOUNG MD DR: ELIER/gadiel JOB#: [id number] / [id number]
[2020-05-11] MEDS: POTASSIUM CHLORIDE 20 MEQ TABLET.ER. PO SCH (20:23)
[2020-05-11] MEDS: LITHIUM CARBONATE ER 450 MG TABLET.ER PO SCH (20:23)
[2020-05-11] MEDS: ATORVASTATIN CALCIUM 20 MG TABLET PO SCH (20:23)
[2020-05-11] MEDS: ENOXAPARIN 40 MG/0.4 ML SYRINGE. SQ SCH (20:24)
[2020-05-11] MEDS: INSULIN GLARGINE SYRINGE. SQ SCH (21:45)
[2020-05-12] MEDS: PIPERACILLIN/TAZOBACTAM 3.375 GM in IV NORMAL SALINE 50ML 50 ML IV SCH ×4 (00:25→21:10)
[2020-05-12 04:48] LABS: CALCIUM 8.8 mg/dL (8.5-10.1); GFR 73.5; POTASSIUM 3.8 mmol/L (3.5-5.1)
[2020-05-12 04:52] LABS: VANC TR 10.4 mcg/mL (10.0-20.0)
[2020-05-12] MEDS: VANCOMYCIN 1.5 GM in IV NORMAL SALINE 500ML 500 ML IV SCH ×2 (06:12→16:59)
[2020-05-12 06:40] VITALS: BP 162/66
[2020-05-12] MEDS: INSULIN LISPRO 300 UNITS/3 ML VIAL. SQ SCH ×6 (08:00→17:03)
[2020-05-12] MEDS: amLODIPine BESYLATE 10 MG TABLET PO SCH (09:30)
[2020-05-12] MEDS: TRIAMTERENE/HCTZ 37.5/25MG TABLET. PO SCH (09:30)
[2020-05-12] MEDS: DEXAMETHASONE 4 MG TABLET PO SCH (09:30)
[2020-05-12] MEDS: ZINC SULFATE 220 MG CAPSULE. PO SCH (09:30)
[2020-05-12] MEDS: GABAPENTIN 300 MG CAPSULE. PO SCH ×3 (09:30→21:06)
[2020-05-12] MEDS: POTASSIUM CHLORIDE 20 MEQ TABLET.ER. PO SCH ×2 (09:30→21:06)
[2020-05-12] MEDS: metFORMIN 500 MG TABLET PO SCH ×2 (09:30→16:59)
[2020-05-12] MEDS: buPROPion XL 300 MG TAB.ER.24H. PO SCH (09:31)
[2020-05-12] MEDS: CITALOPRAM 20 MG TABLET. PO SCH (09:31)
[2020-05-12] MEDS: FAMOTIDINE 20 MG TABLET PO SCH ×2 (09:31→21:06)
[2020-05-12 10:53] VITALS: BP 172/81
[2020-05-12] MEDS: REMDESIVIR 100mg in NORMAL SALINE 250ML X 4 DAYS IV SCH (14:26)
[2020-05-12 14:34] VITALS: BP 142/66
[2020-05-12 19:44] VITALS: BP 147/67
--- NOTE | 2020-05-12 20:22 | PN ---
DATE: 05/12/2020 SUBJECTIVE: The patient is sitting at the edge of the bed comfortably, in no apparent distress. He continued to have cough, is mostly dry scanty white sputum; however, he is now maintaining his oxygen saturation at 93% on room air. Denied any chest pain or shortness of breath. Denied any chills, rigors or fever. PHYSICAL EXAMINATION: GENERAL: When I examined him this afternoon, he looked well and was clearly in no apparent respiratory distress. No pallor, jaundice, cyanosis or thyromegaly. No jugular venous distention or limb edema. VITAL SIGNS: His heart rate was 73, blood pressure 142/66, temperature 97.8, respiratory rate was 20, and oxygen saturation was 93% on room air. HEAD, EYES, EARS, NOSE AND THROAT: Showed normocephalic, atraumatic. NECK: Supple. HEART: Showed normal first and second heart sounds. No gallop or murmur. CHEST: Clear to auscultation. No crepitation or rhonchi. ABDOMEN: Distended, soft, nontender. No guarding or rigidity. No organomegaly. All hernial orifices intact. Bowel sounds normal. NEUROLOGIC: He was grossly intact. His intake over the last 24 hours was 2116, output was recorded. LABORATORY DATA: His most recent lab work showed a serum sodium 137, potassium 3.8, chloride 103, bicarbonate 23, anion gap of 11, BUN 14, creatinine 1, estimated GFR was 74 mL per minute, his glucose 135, calcium was 8.8. His white cell count was 11,000, hemoglobin 13.6, hematocrit 41, MCV 92, and platelet count of 163,000. His D-dimer was 2.60. Toxic screen showed vancomycin trough level was within normal range. His coronavirus-2 PCR was detectable on 05/09. ASSESSMENT: 1. COVID-19 pneumonia. 2. Acute hypoxic respiratory failure, much improved. He is now maintaining his oxygen saturation at 93% on room air. 3. Type 2 diabetes mellitus, seems to be much better. 4. Morbid obesity, obstructive sleep apnea. 5. Hypertension. PLAN: To continue with current medication. I will probably discharge him home tomorrow. ANSHU YOUNG MD DR: ELIER/gadiel JOB#: [id number] / [id number]
[2020-05-12] MEDS: LITHIUM CARBONATE ER 450 MG TABLET.ER PO SCH (21:06)
[2020-05-12] MEDS: ATORVASTATIN CALCIUM 20 MG TABLET PO SCH (21:06)
[2020-05-12] MEDS: ENOXAPARIN 40 MG/0.4 ML SYRINGE. SQ SCH (21:06)
[2020-05-12] MEDS: INSULIN GLARGINE SYRINGE. SQ SCH (21:07)
[2020-05-12 22:55] VITALS: BP 160/68
[2020-05-13] MEDS: VANCOMYCIN 1.5 GM in IV NORMAL SALINE 500ML 500 ML IV SCH (04:08)
[2020-05-13 04:47] LABS: ALT (SGPT) 59 U/L (16-63); AST (SGOT) 26 U/L (15-37)
[2020-05-13 05:31] VITALS: BP 153/74
[2020-05-13] MEDS: PIPERACILLIN/TAZOBACTAM 3.375 GM in IV NORMAL SALINE 50ML 50 ML IV SCH ×2 (06:22)
[2020-05-13] MEDS: GABAPENTIN 300 MG CAPSULE. PO SCH (07:35)
[2020-05-13] MEDS: CITALOPRAM 20 MG TABLET. PO SCH (07:35)
[2020-05-13] MEDS: POTASSIUM CHLORIDE 20 MEQ TABLET.ER. PO SCH (07:36)
[2020-05-13] MEDS: amLODIPine BESYLATE 10 MG TABLET PO SCH (07:36)
[2020-05-13] MEDS: TRIAMTERENE/HCTZ 37.5/25MG TABLET. PO SCH (07:37)
[2020-05-13] MEDS: ZINC SULFATE 220 MG CAPSULE. PO SCH (07:37)
[2020-05-13] MEDS: DEXAMETHASONE 4 MG TABLET PO SCH (07:37)
[2020-05-13] MEDS: metFORMIN 500 MG TABLET PO SCH (07:37)
[2020-05-13] MEDS: FAMOTIDINE 20 MG TABLET PO SCH (07:39)
[2020-05-13] MEDS: buPROPion XL 300 MG TAB.ER.24H. PO SCH (07:40)
[2020-05-13] MEDS: INSULIN LISPRO 300 UNITS/3 ML VIAL. SQ SCH ×4 (08:00→12:44)
[2020-05-13 10:55] VITALS: BP 120/54
[2020-05-13] MEDS ORDERED: AMOX1TAB61 PO (11:47)
--- NOTE | 2020-05-13 12:06 | DS ---
DATE OF DISCHARGE: 05/13/2020 HOSPITAL COURSE: This is a 74-year-old male patient who was originally admitted on 05/04/2020 as he tested positive for COVID-19. Because of increased oxygen requirement and chest x-ray, he was admitted and treated initially with steroids. However, his oxygen requirement has dramatically worsened, he became more short of breath on 05/10/2020 and therefore, we treated him with the convalescent plasma and remdesivir and he did actually very well. When I saw him today, he was maintaining his oxygen saturation at 95% on room air. Continued to have some mild cough that is mostly dry, but denied any chest pain or shortness of breath. He has no fever and therefore, a decision was made to discharge him home. PHYSICAL EXAMINATION: GENERAL: When I examined him, he looked well and was clearly in no apparent respiratory distress. No pallor, jaundice, cyanosis or thyromegaly. No jugular venous distention. No limb edema. VITAL SIGNS: His heart rate was 64, blood pressure was 120/54, temperature was 97.5, respiratory rate was 20, and oxygen saturation was 95% on room air. HEAD, EYES, EARS, NOSE AND THROAT: Showed normocephalic, atraumatic. NECK: Supple. HEART: Showed normal first and second heart sounds. No gallop or murmur. CHEST: Clear to auscultation. No crepitation or rhonchi. ABDOMEN: Distended, soft, nontender. No guarding or rigidity. No organomegaly. All hernial orifices intact. Bowel sounds normal. NEUROLOGIC: He was grossly intact. LABORATORY DATA: Showed a white cell count 11,000, hemoglobin 13, hematocrit 41, MCV 92, and platelet count of 164,000. His chemistry showed a serum sodium 137, potassium 3.8, chloride 103, bicarbonate 23, anion gap of 11, BUN 14, creatinine 1, estimated GFR was 74 mL per minute. His glucose 135, calcium was 8.8. D-dimer was 2.6. His coronavirus-2 PCR was detectable on 05/09/2020. DISCHARGE MEDICATIONS: The patient was discharged home to continue on following medications: Amoxicillin/clavulanic acid 875/125 one tablet twice a day for 5 more days, amlodipine besylate 10 mg once a day, Wellbutrin 300 mg daily, escitalopram oxalate 20 mg daily, gabapentin 600 mg 3 times a day, lithium carbonate 450 mg at bedtime, metformin 1000 mg twice a day, simvastatin 40 mg at bedtime, triamterene/hydrochlorothiazide 1 capsule daily. FINAL DISCHARGE DIAGNOSES: 1. COVID-19 pneumonia. 2. Acute hypoxic respiratory failure, much improved. He is now on room air, maintaining his oxygen saturation at 95%. 3. Type 2 diabetes mellitus, seems to be much better controlled. 4. Morbid obesity, obstructive sleep apnea. 5. Hypertension. The patient was discharged home. The patient was informed that he needs to contact the [facility] as far as his ability to fly while he is still positive for COVID-19, although he is symptomatically much improved. ANSHU YOUNG MD DR: ELIER/gadiel JOB#: [id number] / [id number]
== END 2020-05-13 13:04 | disposition home or self-care (01) | DRG 177 ==
LOC: ER 11:15 → ICU 13:20 → 1 SOUTH 05-09 18:04
PROVIDERS: ADMIT Hospitalist; ATTEND Hospitalist
PROC: XW13325 Transfusion of Convalescent Plasma (Nonautologous) into Peripheral Vein, Percutaneous Approach, New Technology Group 5 (ICD-10-PCS; principal; 2020-05-04)
PROC: XW033E5 Introduction of Remdesivir Anti-infective into Peripheral Vein, Percutaneous Approach, New Technology Group 5 (ICD-10-PCS; 2020-05-04)
PROC: 5A09357 Assistance with Respiratory Ventilation, Less than 24 Consecutive Hours, Continuous Positive Airway Pressure (ICD-10-PCS; 2020-05-09)
PROC: 5A09357 Assistance with Respiratory Ventilation, Less than 24 Consecutive Hours, Continuous Positive Airway Pressure (ICD-10-PCS; 2020-05-11)
DX: U07.1 COVID-19 (principal); J12.89 Other viral pneumonia; J96.01 Acute respiratory failure with hypoxia; J44.9 Chronic obstructive pulmonary disease, unspecified; M19.90 Unspecified osteoarthritis, unspecified site; I10 Essential (primary) hypertension; E78.5 Hyperlipidemia, unspecified; E11.9 Type 2 diabetes mellitus without complications; E66.01 Morbid (severe) obesity due to excess calories; Z68.31 Body mass index [BMI] 31.0-31.9, adult; Z96.652 Presence of left artificial knee joint; Z87.442 Personal history of urinary calculi
CPT/HCPCS: 36415; 71045; 71046; 71260; 80048; 80053; 80076; 80202; 82947; 83735; 83880; 84450; 84460; 84484; 85025; 85027; 85379; 86140; 86850; 86900; 86901; 86927; 93005; 96365; 96366; 96375; J0696; J1100; J1650; J1815; J1940; J2543; J2930; J3370; J7040; J7050; J8540; 99285-25; J7030; P9017; U0003-CS